=== PATIENT | male | born 1935 | race Caucasian/White ===

== ENCOUNTER 2017-12-09 12:15 | Inpatient (IN) | payer MEDICARE ==
[~2017-12-09] VITALS: Ht 182.9 cm; Wt 90.7 kg
[2017-12-09] MEDS ORDERED: Sodium Chloride 500ML 500 ML IV ONE (12:30)
[2017-12-09] MEDS ORDERED: MIRTAZAPINE15 M3 ORAL (12:43)
[2017-12-09] MEDS ORDERED: ELIQUIS5 MG PO (12:43)
[2017-12-09] MEDS ORDERED: ATORVASTATIN CA40 MG ORAL (12:43)
[2017-12-09] MEDS ORDERED: ACID CONTROL150 MG ORAL (12:43)
[2017-12-09] MEDS ORDERED: FOLIC ACID1 MG ORAL (12:43)
[2017-12-09] MEDS ORDERED: CITALOPRAM HBR10 M1 ORAL (12:43)
[2017-12-09 13:08] VITALS: BP 109/72
[2017-12-09 13:33] LABS: BASOPHILS % (AUTO) 0.9 % (0.0-2.0); EOSINOPHILS % (AUTO) 2.3 % (0.0-3.0); HEMATOCRIT 40.5 % (42.0-52.0); HEMOGLOBIN 13.4 G/DL (14.2-18.0); LYMPHOCYTES % (AUTO) 17.6 % (20.0-45.0); MEAN CORPUSCULAR VOLUME 90 FL (80-99); MONOCYTES % (AUTO) 7.7 % (1.0-10.0); NEUTROPHILS % (AUTO) 71.5 % (45.0-75.0); PLATELET COUNT 179 K/UL (150-450); RED CELL DISTRIBUTION WIDTH 13.3 % (11.6-14.8); WHITE BLOOD COUNT 5.6 K/UL (4.8-10.8)
[2017-12-09 13:48] LABS: ANION GAP 8 mmol/L (5-15); BLOOD UREA NITROGEN 20 mg/dL (7-18); CARBON DIOXIDE 24 MMOL/L (21-32); CHLORIDE 112 MMOL/L (98-107); CREATININE 1.8 MG/DL (0.55-1.30); POTASSIUM 4.2 MMOL/L (3.5-5.1); SODIUM 143 MMOL/L (136-145)
--- NOTE | 2017-12-09 13:58 | Diagnostic Imaging Report ---
Indication: Chest pain Technique: One view of the chest Comparison: none Findings: Heart is enlarged. The lungs and pleural spaces are clear. The aorta is tortuous and ectatic. The top of what is probably an aortic stent graft is seen in the midabdomen Impression: Cardiomegaly. No definite acute process
[2017-12-09 14:02] LABS: ALANINE AMINOTRANSFERASE 17 U/L (12-78); ALBUMIN 2.7 G/DL (3.4-5.0); ALBUMIN/GLOBULIN RATIO 0.7 (1.0-2.7); ALKALINE PHOSPHATASE 109 U/L (46-116); ASPARTATE AMINO TRANSFERASE 25 U/L (15-37); BILIRUBIN,TOTAL 0.4 MG/DL (0.2-1.0); CREATINE KINASE 100 U/L (26-308)
[2017-12-09 14:30] VITALS: BP 107/58
[2017-12-09 15:33] VITALS: BP 103/65
[2017-12-09] MEDS ORDERED: Milk of Magnesia 30ml Ud ORAL PRN (15:45)
[2017-12-09 15:46] LABS: APPEARANCE,URINE SLIGHTLY CLOUDY; BILIRUBIN, URINE NEGATIVE (NEGATIVE); COLOR,URINE PALE YELLOW; GLUCOSE, URINE (UA) NEGATIVE (NEGATIVE); KETONES,URINE NEGATIVE (NEGATIVE); LEUKOCYTE ESTERASE ,URINE NEGATIVE (NEGATIVE); NITRITE,URINE NEGATIVE (NEGATIVE); PH,URINE 5 (4.5-8.0); PROTEIN,URINE NEGATIVE (NEGATIVE); UROBILINOGEN,URINE NORMAL MG/DL (0.0-1.0)
[2017-12-09] MEDS: Citalopram Hydrobromide 10mg Tab ORAL SCH (17:37)
--- NOTE | 2017-12-09 19:11 | History & Physical ---
History and Physical History & Physicial H&P dictated [id number] CARMEN MARSHALL M.D. Dec 09, 2017 19:11
[2017-12-09 20:00] VITALS: BP 90/53
[2017-12-09] MEDS: Atorvastatin 20mg tab ORAL SCH (20:57)
[2017-12-10] VITALS: BP 98/67
--- NOTE | 2017-12-10 00:30 | History and Physical Report ---
DATE OF ADMISSION: 12/09/2017 REASON FOR ADMISSION: Hypotension and near syncope. HISTORY OF PRESENT ILLNESS: This is a 82-year-old male who is followed at the [facility] with past medical history significant for atrial fibrillation on Eliquis, gastroesophageal reflux disease, major depressive disorder, dermatitis of the face and arms as well as torso who was brought in by ambulance from assisted living facility [facility] for hypotension. The patient had episode of near syncope and dizziness. He is a poor historian; however denies any chest pain, shortness of breath, nausea or vomiting. He does have a scaly skin lesion with oozing over his face as well his arms and has recently seen a invoice control clerk as far as yesterday for dermatitis for which he is being treated. In regards to his low blood pressure, the patient has had workup in the emergency room which revealed elevated lactate however he did have normal white blood cell count as well as a negative urinalysis for infection and normal chest x-ray. The patient's creatinine is elevated at 1.8. He has no history of kidney disease. PAST MEDICAL HISTORY: Includes syncope, history of falling, difficulty walking, muscle weakness, atrial fibrillation, sick sinus syndrome, hypothyroidism, dermatitis, major depressive disorder with psychotic features, atherosclerotic heart disease, eczema/dermatitis of face. PAST SURGICAL HISTORY: None. FAMILY HISTORY: Unknown. SOCIAL HISTORY: The patient lives at assisted living facility. He denies smoking or drinking alcohol. ALLERGIES: None. MEDICATIONS: Reviewed in [facility]. PHYSICAL EXAMINATION: VITAL SIGNS: Temperature is , pulse 90, respiratory rate 18, blood pressure 107/58, O2 saturation 99% on room air. GENERAL: No acute distress. The patient is awake, alert, and oriented x3. HEENT: Normocephalic and atraumatic. NECK: Supple. No JVD. LUNGS: Clear to auscultation bilaterally. CARDIOVASCULAR: Regular rate but irregular rhythm. ABDOMEN: Soft, nontender, and nondistended. EXTREMITIES: No clubbing, cyanosis, or edema. NEUROLOGIC: The patient able to move all extremities and is awake. SKIN: The patient has a scaly round lesions with oozing diffusely over his face along with crusting as well as his arms and torso. LABORATORY AND DIAGNOSTIC DATA: BMP sodium 143, potassium 4.2, chloride 112, CO2 24, BUN 20, creatinine 1.8, glucose 124. Albumin is 2.7. CBC, white count of 5.6, hemoglobin 13.4, and platelet count 179. UA has 5+ occult alcohol blood, but 0 to 2 RBCs, no WBCs. Chest x-ray shows no acute process or infiltrate. ASSESSMENT: 1. Hypotension without any sign of infection. Differential diagnosis includes dehydration/hypovolemia versus secondary to infectious process over skin lesions. 2. Near syncope. 3. History of falls. 4. Atrial fibrillation-rate controlled. 5. Hypothyroidism. 6. Dermatitis diffuse over the left face as well arms and torso. 7. Major depressive disorder. 8. Acute kidney injury possibly secondary to dehydration. PLANT: 1. Admit to telemetry. 2. Renal consult with Dr. Caleb Merchant. 3. TTE. 4. Cardiac consult for atrial fibrillation with Dr. Pennington. 5. Check a TSH and free T4 as the patient is not on Synthroid and has a history of hypothyroidism. 6. Half NS at 75 mL an hour and monitor creatinine. 7. Continue Eliquis 5 mg p.o. b.i.d. 8. Physical therapy evaluation. Wilian Broderick MD DR: Susu JOB#: [id number] CC:
[2017-12-10 04:00] VITALS: BP 100/66
[2017-12-10 08:00] VITALS: BP 118/88
[2017-12-10] MEDS: Citalopram Hydrobromide 10mg Tab ORAL SCH (08:08)
[2017-12-10] MEDS: Eliquis 2.5mg tablet ORAL SCH ×2 (08:08→17:25)
[2017-12-10 09:34] LABS: BASOPHILS % (AUTO) 1.8 % (0.0-2.0); EOSINOPHILS % (AUTO) 4.7 % (0.0-3.0); HEMATOCRIT 38.1 % (42.0-52.0); HEMOGLOBIN 12.7 G/DL (14.2-18.0); LYMPHOCYTES % (AUTO) 17.5 % (20.0-45.0); MEAN CORPUSCULAR VOLUME 90 FL (80-99); MONOCYTES % (AUTO) 10.4 % (1.0-10.0); NEUTROPHILS % (AUTO) 65.6 % (45.0-75.0); PLATELET COUNT 170 K/UL (150-450); RED BLOOD COUNT 4.23 M/UL (4.70-6.10); RED CELL DISTRIBUTION WIDTH 13.2 % (11.6-14.8); WHITE BLOOD COUNT 4.9 K/UL (4.8-10.8)
[2017-12-10 10:08] LABS: ANION GAP 8 mmol/L (5-15); BLOOD UREA NITROGEN 18 mg/dL (7-18); CALCIUM 8.8 MG/DL (8.5-10.1); CARBON DIOXIDE 25 MMOL/L (21-32); CHLORIDE 112 MMOL/L (98-107); CREATININE 1.3 MG/DL (0.55-1.30); POTASSIUM 3.9 MMOL/L (3.5-5.1); SODIUM 144 MMOL/L (136-145)
[2017-12-10 11:58] VITALS: BP 119/65
--- NOTE | 2017-12-10 14:28 | History & Physical ---
History and Physical History & Physicial HP dictated # [id number] SEAN EVANS Dec 10, 2017 14:28
[2017-12-10] MEDS: Vancomycin 1.5gm/D5W 250ml 250 ML IVPB SCH (15:06)
--- NOTE | 2017-12-10 15:46 | Cardiology Progress Note ---
Subjective Subjective [id number] Objective Last 24 Hour Vital Signs Date Time Temp Pulse Resp B/P (MAP) Pulse Ox O2 Delivery O2 Flow Rate FiO2 12/10/17 12:00 90 12/10/17 11:58 97.0 94 20 119/65 95 12/10/17 08:00 92 12/10/17 08:00 97.2 88 20 118/88 95 12/10/17 04:00 97.4 69 19 100/66 95 12/10/17 04:00 87 12/10/17 00:00 97.4 69 20 98/67 94 12/10/17 00:00 83 12/09/17 20:00 97.0 86 20 90/53 100 12/09/17 17:00 89 12/09/17 16:19 87 15 107/70 99 Room Air Intake and Output 12/09/17 12/10/17 19:00 07:00 Intake Total 260 ml 450 ml Output Total 600 ml 400 ml Balance -340 ml 50 ml Intake Oral 260 ml IV Total 0 ml 450 ml Output Urine Total 600 ml 400 ml Laboratory Tests Test 12/09/17 17:50 12/10/17 08:00 Urine Random Sodium 94 MEQ/L (20-110) Urine Creatinine 175.9 MG/DL (30.0-125.0) H White Blood Count 4.9 K/UL (4.8-10.8) Red Blood Count 4.23 M/UL (4.70-6.10) L Hemoglobin 12.7 G/DL (14.2-18.0) L Hematocrit 38.1 % (42.0-52.0) L Mean Corpuscular Volume 90 FL (80-99) Mean Corpuscular Hemoglobin 30.1 PG (27.0-31.0) Mean Corpuscular Hemoglobin Concent 33.4 G/DL (32.0-36.0) Red Cell Distribution Width 13.2 % (11.6-14.8) Platelet Count 170 K/UL (150-450) Mean Platelet Volume 9.4 FL (6.5-10.1) Neutrophils (%) (Auto) 65.6 % (45.0-75.0) Lymphocytes (%) (Auto) 17.5 % (20.0-45.0) L Monocytes (%) (Auto) 10.4 % (1.0-10.0) H Eosinophils (%) (Auto) 4.7 % (0.0-3.0) H Basophils (%) (Auto) 1.8 % (0.0-2.0) Sodium Level 144 MMOL/L (136-145) Potassium Level 3.9 MMOL/L (3.5-5.1) Chloride Level 112 MMOL/L (98-107) H Carbon Dioxide Level 25 MMOL/L (21-32) Anion Gap 8 mmol/L (5-15) Blood Urea Nitrogen 18 mg/dL (7-18) Creatinine 1.3 MG/DL (0.55-1.30) Estimat Glomerular Filtration Rate mL/min (>60) Glucose Level 99 MG/DL (74-106) Calcium Level 8.8 MG/DL (8.5-10.1) Magnesium Level 1.8 MG/DL (1.8-2.4) Thyroid Stimulating Hormone (TSH) 2.823 uiU/mL (0.358-3.740) Microbiology Date/Time Source Procedure Growth Status 12/09/17 13:00 Blood Blood Culture - Preliminary Resulted 12/09/17 12:45 Blood Blood Culture - Preliminary Resulted MILE PANCHAL Dec 10, 2017 15:46
[2017-12-10 16:00] VITALS: BP 105/66
[2017-12-10] MEDS ORDERED: 1/2 NS 1000ml IV ONE (16:36)
[2017-12-10 20:00] VITALS: BP 107/66
[2017-12-10] MEDS: Atorvastatin 20mg tab ORAL SCH (21:01)
--- NOTE | 2017-12-10 22:45 | Consultation ---
DATE OF CONSULTATION: 12/10/2017 NEPHROLOGY CONSULTATION CONSULTING PHYSICIAN: Caleb Merchant M.D. REFERRING PHYSICIAN: Wilian Broderick M.D. REASON FOR CONSULTATION: Acute renal failure. HISTORY OF PRESENT ILLNESS: The patient is an 82-year-old white male who was admitted with hypotension and near syncope. The patient does not recall much details but he said he was on the street. He became dizzy and he was brought into the emergency room and was found to have also elevated creatinine at 1.8. The patient denies any previous history of kidney problems. Denies history of nausea, vomiting, or diarrhea. He denies being on any diuretics. PAST MEDICAL HISTORY: He has some scaly lesions over face and he has also some other lesions over other parts of body especially the neck. He does not know the diagnosis but usually goes to [place]. He has history of atrial fibrillation, sick sinus syndrome, hypothyroidism, major depressive disorder, psychotic features, coronary artery disease, history of eczema. MEDICATIONS: Reviewed and reconciled in the EMR. SOCIAL HISTORY: The patient lives in an assisted living facility. No history of smoking or alcohol abuse. ALLERGIES: No known drug allergies. REVIEW OF SYSTEMS: Noncontributory except what was mentioned. PHYSICAL EXAMINATION: GENERAL: The patient is elderly male, in no acute distress. VITAL SIGNS: Blood pressure 119/65, pulse 94, respiratory rate 20, temperature 97. HEENT: [place] conjunctivae. Anicteric sclerae. The patient has lesions with scaling and oozing over most of his face. NECK: Supple. LUNGS: Clear to auscultation. HEART: S1 and S2 without murmurs or rubs. ABDOMEN: Soft and nontender. EXTREMITIES: No cyanosis or edema. LABORATORY FINDINGS: Chemistry panel as of yesterday showed a serum sodium of 143, potassium 4.2, chloride 112, CO2 21, BUN 20, creatinine 1.8, and albumin is 2.7. CBC shows a WBC of 5.6, hematocrit is 40.7, hemoglobin is 13.4,. UA was unremarkable. Today the serum creatinine is down to 1.3. ASSESSMENT: This is an 82-year-old male who was admitted with diagnosis of presyncope as a result of low blood pressures. He had also acute renal failure with creatinine up to 1.8. He received intravenous normal saline currently at the range of 75 mL an hour. Blood pressure has been stable. His creatinine has come down so diagnosis likely prerenal azotemia. It is not clear why he has developed that. He says that he has been drinking enough fluids and there was no also gastrointestinal losses and he was also not on any diuretics. Low blood pressure could be from sepsis but then again there was no source was found. His UA is unremarkable. PLAN: I would continue with IV fluid. Chemistry panel will be followed closely. The patient is on Eliquis for his history of atrial fibrillation, and also IV vancomycin, I am assuming for cellulitis. Thank you, very much Dr. Broderick, for this consultation. Caleb Merchant M.D. DR: Damaris JOB#: [id number] CC: ERASMO
--- NOTE | 2017-12-10 23:45 | Consultation ---
DATE OF CONSULTATION: 12/10/2017 CARDIOLOGY CONSULTATION CONSULTING PHYSICIAN: Dilia Corral M.D. PATIENT IDENTIFYING DATA: This is an 82-year-old white male. REASON FOR ADMISSION: Syncopal episode. HISTORY OF PRESENT ILLNESS: History taken from the patient and reviewing the chart, the patient is very slow and not very good historian. He apparently ended up on the ground while he was working outside and he is not sure about circumstances if he feel dizzy. He found himself arouse when he was taken by paramedics. It sounded like it is not the first time, but the patient is not able to give a detailed history. He is oriented, however and he knows where he is. PAST MEDICAL HISTORY: Significant for atrial fibrillation. He is anticoagulated. His other medical problems include dermatitis. He has very impressive skin covered with a crust what looks like brownish-yellowish crust on his face and on his neck. He also had a history of hypothyroidism, depression, and psychiatric problems. MEDICATIONS: Reviewed and apparently at home, he is taking apixaban, atorvastatin, folic acid, mirtazapine, and Zantac. ALLERGIES: Not documented. HABITS: He denies smoking or alcohol abuse. REVIEW OF SYSTEMS: He denies chest pain, palpitations, shortness of breath. I am not sure how reliable his review of system is. PHYSICAL EXAMINATION: GENERAL: Revealed elderly man, lying in bed. VITAL SIGNS: Blood pressure 110/90, heart rate is 70, oxygen saturation is normal, and he is afebrile. HEENT: PERRLA. EOMI. However, skin covered with a very dense yellow brownish crust, which is not painful and not draining. NECK: Supple. Neck veins are not distended. He has no carotid bruit. He has normal carotid upstroke. LUNGS: Clear to auscultation bilaterally. HEART: Irregular. PMI is in the sixth intercostal space in midclavicular line. He has very slight accented A2. ABDOMEN: Soft. There is no scar. Bowel sounds are present. No guarding. No hepatomegaly. EXTREMITIES: Lower extremities, moderate edema. Distal pulses palpable. No erythema. LABORATORY AND DIAGNOSTIC DATA: EKG, right bundle-branch block, atrial fibrillation. Telemetry strips ventricular tachycardia, one 6 beats and another one 10 beats. His laboratory data all reviewed. Troponin was negative. His hemoglobin was down to 12.7. His creatinine 1.3, and TSH is normal at 2.8. Chest x-ray, unremarkable. IMPRESSION AND RECOMMENDATIONS: 1. Syncopal episode. 2. Atrial fibrillation. 3. Nonsustained ventricular tachycardia. PLAN: Echocardiogram and court monitor. Thank you very much for your consultation. Dilia Corral M.D. DR: Raji JOB#: [id number] CC:
[2017-12-11] VITALS: BP 105/64
[2017-12-11 04:00] VITALS: BP 129/94
[2017-12-11 08:00] VITALS: BP 127/75
--- NOTE | 2017-12-11 08:05 | Emergency Room Report ---
History of Present Illness General Chief Complaint: General Complaint Source: Patient, Medical Record Present Illness HPI Patient was at his regular facility when he was reported to have a hypotensive episode Patient appeared essentially near syncopal Patient himself is a poor historian Cannot provide specific history However at this time denies any headache denies any chest pain He was not sure why he was brought to the hospital Patient's son-in-law is here initially requesting to be let go [facility] He reports that they were just a few days ago Prior to that they were at [facility] Patient has a skin condition and is being followed by dermatology Allergies: Coded Allergies: No Known Allergies (Unverified , 12/09/17) Patient History Past Medical History: see triage record Pertinent Family History: none Reviewed Nursing Documentation: PMH: Agreed, PSxH: Agreed Nursing Documentation-PMH Past Medical History: No History, Except For Hx Cancer: No Hx Gastrointestinal Problems: No Hx Neurological Problems: No Review of Systems All Other Systems: limited - Other than the ones mentioned in the history of present illness all others are reviewed however they do stay limited due to the patient's mental status Physical Exam Vital Signs Date Time Temp Pulse Resp B/P (MAP) Pulse Ox O2 Delivery O2 Flow Rate FiO2 12/09/17 12:06 98.6 102 18 100/58 95 Room Air Sp02 EP Interpretation: reviewed, normal General Appearance: no apparent distress Head: normocephalic, atraumatic Eyes: bilateral eye PERRL, bilateral eye EOMI ENT: hearing grossly normal, normal pharynx, TMs + canals normal, uvula midline Neck: full range of motion, supple, no meningismus, no bony tend Respiratory: lungs clear, normal breath sounds, no rhonchi, no respiratory distress, no retraction, no accessory muscle use Cardiovascular #1: normal peripheral pulses, regular rate, rhythm, no edema, no gallop, no JVD, no murmur Gastrointestinal: normal bowel sounds, non tender, soft, no mass, no organomegaly, non-distended, no guarding, no hernia, no pulsatile mass, no rebound Genitourinary: no CVA tenderness Musculoskeletal: normal inspection Neurologic: responsive, quarry plug and feather driller III-XII nml as tested, motor strength/tone normal, sensory intact Psychiatric: mood/affect normal Skin: other - Patient has a diffuse dermatitis, including areas of impetigo appearing honey crusting regions on the facial area and neck Lymphatic: normal inspection, no adenopathy Medical Decision Making Diagnostic Impression: Primary Impression: Sepsis Additional Impression: hypotension ER Course Patient is a fairly complex patient with multiple differential to consideration including but not limited to cardiac cardiopulmonary and vascular emergencies Patient's blood pressure here is more appropriate Patient is afebrile Blood work is at baseline levels given the patient's episode and presentation however he does require further cardiac evaluation And further inpatient care Please note that the son-in-law initially requested leaving AGAINST MEDICAL ADVICE Patient's daughter who is legal guardian however is reporting that patient should be admitted and does not want him to leave AGAINST MEDICAL ADVICE Labs Test 12/09/17 13:00 12/09/17 15:10 12/09/17 17:50 12/10/17 08:00 White Blood Count 5.6 K/UL (4.8-10.8) 4.9 K/UL (4.8-10.8) Red Blood Count 4.50 M/UL (4.70-6.10) 4.23 M/UL (4.70-6.10) Hemoglobin 13.4 G/DL (14.2-18.0) 12.7 G/DL (14.2-18.0) Hematocrit 40.5 % (42.0-52.0) 38.1 % (42.0-52.0) Mean Corpuscular Volume 90 FL (80-99) 90 FL (80-99) Mean Corpuscular Hemoglobin 29.9 PG (27.0-31.0) 30.1 PG (27.0-31.0) Mean Corpuscular Hemoglobin Concent 33.2 G/DL (32.0-36.0) 33.4 G/DL (32.0-36.0) Red Cell Distribution Width 13.3 % (11.6-14.8) 13.2 % (11.6-14.8) Platelet Count 179 K/UL (150-450) 170 K/UL (150-450) Mean Platelet Volume 9.1 FL (6.5-10.1) 9.4 FL (6.5-10.1) Neutrophils (%) (Auto) 71.5 % (45.0-75.0) 65.6 % (45.0-75.0) Lymphocytes (%) (Auto) 17.6 % (20.0-45.0) 17.5 % (20.0-45.0) Monocytes (%) (Auto) 7.7 % (1.0-10.0) 10.4 % (1.0-10.0) Eosinophils (%) (Auto) 2.3 % (0.0-3.0) 4.7 % (0.0-3.0) Basophils (%) (Auto) 0.9 % (0.0-2.0) 1.8 % (0.0-2.0) Sodium Level 143 MMOL/L (136-145) 144 MMOL/L (136-145) Potassium Level 4.2 MMOL/L (3.5-5.1) 3.9 MMOL/L (3.5-5.1) Chloride Level 112 MMOL/L (98-107) 112 MMOL/L (98-107) Carbon Dioxide Level 24 MMOL/L (21-32) 25 MMOL/L (21-32) Anion Gap 8 mmol/L (5-15) 8 mmol/L (5-15) Blood Urea Nitrogen 20 mg/dL (7-18) 18 mg/dL (7-18) Creatinine 1.8 MG/DL (0.55-1.30) 1.3 MG/DL (0.55-1.30) Estimat Glomerular Filtration Rate mL/min (>60) mL/min (>60) Glucose Level 124 MG/DL (74-106) 99 MG/DL (74-106) Lactic Acid Level 3.10 mmol/L (0.66-2.22) 1.90 mmol/L (0.66-2.22) Calcium Level 9.0 MG/DL (8.5-10.1) 8.8 MG/DL (8.5-10.1) Total Bilirubin 0.4 MG/DL (0.2-1.0) Aspartate Amino Transf (AST/SGOT) 25 U/L (15-37) Alanine Aminotransferase (ALT/SGPT) 17 U/L (12-78) Alkaline Phosphatase 109 U/L (46-116) Total Creatine Kinase 100 U/L (26-308) Creatine Kinase MB 2.0 NG/ML (0.0-3.6) Creatine Kinase MB Relative Index 2.0 Troponin I 0.006 ng/mL (0.000-0.056) Pro-B-Type Natriuretic Peptide 565 pg/mL (0-125) Total Protein 6.6 G/DL (6.4-8.2) Albumin 2.7 G/DL (3.4-5.0) Globulin 3.9 g/dL Albumin/Globulin Ratio 0.7 (1.0-2.7) Lipase 213 U/L (73-393) Free Thyroxine 0.95 NG/DL (0.76-1.46) Urine Color Pale yellow Urine Appearance Slightly cloudy Urine pH 5 (4.5-8.0) Urine Specific [place] 1.010 (1.005-1.035) Urine Protein Negative (NEGATIVE) Urine Glucose (UA) Negative (NEGATIVE) Urine Ketones Negative (NEGATIVE) Urine Occult Blood 5+ (NEGATIVE) Urine Nitrite Negative (NEGATIVE) Urine Bilirubin Negative (NEGATIVE) Urine Urobilinogen Normal MG/DL (0.0-1.0) Urine Leukocyte Esterase Negative (NEGATIVE) Urine RBC 0-2 /HPF (0 - 0) Urine WBC 0-2 /HPF (0 - 0) Urine Squamous Epithelial Cells None /LPF (NONE/OCC) Urine Amorphous Sediment Moderate /LPF (NONE) Urine Bacteria Occasional /HPF (NONE) Urine Random Sodium 94 MEQ/L (20-110) Urine Creatinine 175.9 MG/DL (30.0-125.0) Magnesium Level 1.8 MG/DL (1.8-2.4) Thyroid Stimulating Hormone (TSH) 2.823 uiU/mL (0.358-3.740) EKG Diagnostic Results Rate: normal Rhythm: NSR ST Segments: no acute changes Rhythm Strip Diag. Results EP Interpretation: yes Rate: 78 Rhythm: NSR, no PVC's, no ectopy Chest X-Ray Diagnostic Results Chest X-Ray Diagnostic Results : Chest X-Ray Ordered: Yes # of Views/Limited/Complete: 1 View Indication: Chest Pain EP Interpretation: Yes Interpretation: no consolidation, no effusion, no pneumothorax, other - Cardiomegaly Impression: No acute disease Electronically Signed by: Nancy Pickens DO Last Vital Signs Date Time Temp Pulse Resp B/P (MAP) Pulse Ox O2 Delivery O2 Flow Rate FiO2 12/11/17 04:00 73 12/11/17 04:00 97.0 20 129/94 94 12/09/17 16:19 Room Air Status: improved Disposition: ADMITTED INPATIENT Condition: Serious Referrals: NON PHYSICIAN (PCP) NANCY PICKENS D.O. Dec 11, 2017 08:05
[2017-12-11] MEDS: Citalopram Hydrobromide 10mg Tab ORAL SCH (09:23)
[2017-12-11] MEDS: Eliquis 2.5mg tablet ORAL SCH ×2 (09:24→18:23)
[2017-12-11 12:00] VITALS: BP 132/66
--- NOTE | 2017-12-11 12:06 | General Progress Note ---
Assessment/Plan Problem List: (1) Syncope and collapse ICD Codes: R55 - Syncope and collapse SNOMED: 292135423 (2) Sepsis ICD Codes: A41.9 - Sepsis, unspecified organism SNOMED: 42102051 (3) Staphylococcus aureus bacteremia ICD Codes: R78.81 - Bacteremia SNOMED: 857042683 (4) ARF (acute renal failure) ICD Codes: N17.9 - Acute kidney failure, unspecified SNOMED: 95817269 Assessment/Plan IV vanco ID consult follow BMP Discussed with Dr Broderick Subjective Allergies: Coded Allergies: No Known Allergies (Unverified , 12/09/17) Subjective In NAD Objective Last 24 Hour Vital Signs Date Time Temp Pulse Resp B/P (MAP) Pulse Ox O2 Delivery O2 Flow Rate FiO2 12/11/17 08:00 97.5 102 20 127/75 100 12/11/17 04:00 73 12/11/17 04:00 97.0 94 20 129/94 94 12/11/17 00:00 82 12/11/17 00:00 97.0 79 20 105/64 99 12/10/17 20:00 97.0 81 20 107/66 100 12/10/17 20:00 83 12/10/17 16:00 97.5 93 20 105/66 96 12/10/17 16:00 83 Intake and Output 12/10/17 12/11/17 19:00 07:00 Intake Total 360 ml 825 ml Output Total 500 ml 1000 ml Balance -140 ml -175 ml Intake Oral 360 ml IV Total 0 ml 825 ml Output Urine Total 500 ml 1000 ml Height (Feet): 6 Weight (Pounds): 200 Cardiovascular: normal rate Respiratory/Chest: lungs clear Edema: no edema noted SEAN Knight Dec 11, 2017 12:06
[2017-12-11] MEDS: Vancomycin 1.5gm/D5W 250ml 250 ML IVPB SCH (14:42)
--- NOTE | 2017-12-11 14:54 | Cardiology Report ---
APPROVED REPORT EXAM: Two-dimensional and M-mode echocardiogram with Doppler and color Doppler. INDICATION Atrial Fibrillation M-Mode DIMENSIONS IVSd1.4 (0.7-1.1cm)Left Atrium (MM)4.4 (1.6-4.0cm) LVDd6.5 (3.5-5.6cm)Aortic Root4.5 (2.0-3.7cm) PWd1.1 (0.7-1.1cm)Aortic Cusp Exc.1.9 (1.5-2.0cm) IVSs2.5 cm LVDs5.0 (2.5-4.0cm) Normal left ventricular chamber size, systolic function and wall motion. Left ventricular ejection fraction estimated to be 60-65 %. No evidence of pericardial effusion Mild left ventricular hypertrophy by 2-D. Mild Left atrial enlargement. Right ventricular chamber sizes is within normal limits. Focal aortic valve sclerosis with adequate cusp excursion. Heavy Thickened mitral valve leaflets with normal excursion. Heavy Mitral annulus and aortic root calcification. Pulmonic valve not well visualized. Normal tricuspid valve structure. IVC at 1.3 cm with physiologic collapse . A color flow and spectral Doppler study was performed and revealed: No aortic regurgitation. Mild to moderate mitral regurgitation. Diastolic function can not determine due to Atrial fibrillation. Mild tricuspid regurgitation. Tricuspid systolic velocities suggests peak right ventricular systolic pressure of 30 mmHg, No Pulmonic regurgitation present.
[2017-12-11 16:00] VITALS: BP 121/74
[2017-12-11] MEDS ORDERED: Tubing IV Secondary IV ONE (16:36)
--- NOTE | 2017-12-11 17:14 | Cardiology Progress Note ---
Assessment/Plan Assessment/Plan echo revealed normal LV function \non sustained vtach unlikely to cause syncope Subjective Subjective patient is doing the same, slow to give hsitory and does not have any compalints Objective Last 24 Hour Vital Signs Date Time Temp Pulse Resp B/P (MAP) Pulse Ox O2 Delivery O2 Flow Rate FiO2 12/11/17 16:00 97.0 81 20 121/74 97 12/11/17 12:00 97.2 120 18 132/66 95 12/11/17 12:00 117 12/11/17 08:00 91 12/11/17 08:00 97.5 102 20 127/75 100 12/11/17 04:00 73 12/11/17 04:00 97.0 94 20 129/94 94 12/11/17 00:00 82 12/11/17 00:00 97.0 79 20 105/64 99 12/10/17 20:00 97.0 81 20 107/66 100 12/10/17 20:00 82 General Appearance: WD/WN EENT: other - severre rash on his face and legs Neck: non-tender Rhythm: NSR, VT - non sustained v tach Cardiovascular: other - episodes of non sustained vatch Respiratory/Chest: lungs clear Abdomen: non tender Extremities: normal range of motion Intake and Output 12/10/17 12/11/17 19:00 07:00 Intake Total 360 ml 825 ml Output Total 500 ml 1000 ml Balance -140 ml -175 ml Intake Oral 360 ml IV Total 0 ml 825 ml Output Urine Total 500 ml 1000 ml Microbiology Date/Time Source Procedure Growth Status 12/09/17 13:00 Blood Blood Culture - Preliminary Staphylococcus Aureus Resulted 12/09/17 12:45 Blood Blood Culture - Preliminary Staphylococcus Aureus Resulted 12/10/17 10:00 Wound Gram Stain - Final Resulted 12/10/17 10:00 Wound Culture - Preliminary Staphylococcus Aureus Resulted MILE PANCHAL Dec 11, 2017 17:14
[2017-12-11 20:00] VITALS: BP 122/78
[2017-12-11] MEDS: Atorvastatin 20mg tab ORAL SCH (21:20)
[2017-12-12] VITALS: BP 113/76
[2017-12-12 04:00] VITALS: BP 116/64
[2017-12-12 08:00] VITALS: BP 126/87
[2017-12-12] MEDS: Citalopram Hydrobromide 10mg Tab ORAL SCH (08:42)
[2017-12-12] MEDS: Eliquis 2.5mg tablet ORAL SCH ×2 (08:42→17:40)
--- NOTE | 2017-12-12 09:49 | Diagnostic Imaging Report ---
Indication:Elevated Bun and Creatinine. Technique: Grayscale and duplex Doppler imaging of the kidneys performed. Comparison: None Findings: The size, contour, and echogenicity of both kidneys are within normal limits. There is a 2.5 cm left renal cyst demonstrated. The right kidney is about 9 cm. Left kidney 11.3 cm. There is no hydronephrosis. The IVC and urinary bladder are unremarkable. IMPRESSION: Borderline small right kidney Left renal cyst
[2017-12-12 11:47] LABS: BASOPHILS % (AUTO) 1.1 % (0.0-2.0); EOSINOPHILS % (AUTO) 4.3 % (0.0-3.0); HEMATOCRIT 41.4 % (42.0-52.0); HEMOGLOBIN 13.5 G/DL (14.2-18.0); LYMPHOCYTES % (AUTO) 29.4 % (20.0-45.0); MEAN CORPUSCULAR VOLUME 91 FL (80-99); MONOCYTES % (AUTO) 8.6 % (1.0-10.0); NEUTROPHILS % (AUTO) 56.6 % (45.0-75.0); PLATELET COUNT 207 K/UL (150-450); RED BLOOD COUNT 4.55 M/UL (4.70-6.10); RED CELL DISTRIBUTION WIDTH 13.3 % (11.6-14.8); WHITE BLOOD COUNT 4.8 K/UL (4.8-10.8)
[2017-12-12 12:00] VITALS: BP 103/64
[2017-12-12 12:04] LABS: ANION GAP 9 mmol/L (5-15); BLOOD UREA NITROGEN 15 mg/dL (7-18); CALCIUM 8.8 MG/DL (8.5-10.1); CARBON DIOXIDE 24 MMOL/L (21-32); CHLORIDE 111 MMOL/L (98-107); CREATININE 1.2 MG/DL (0.55-1.30); POTASSIUM 4.1 MMOL/L (3.5-5.1); SODIUM 144 MMOL/L (136-145)
--- NOTE | 2017-12-12 14:21 | Nephrology Progress Note ---
Assessment/Plan Problem List: (1) Syncope and collapse (2) Sepsis (3) Staphylococcus aureus bacteremia (4) ARF (acute renal failure) Assessment ARF better Plan abxs follow labs Discussed with Dr Broderick Subjective Subjective In NAD Objective Objective Last 24 Hour Vital Signs Date Time Temp Pulse Resp B/P (MAP) Pulse Ox O2 Delivery O2 Flow Rate FiO2 12/12/17 12:00 98.0 90 19 103/64 99 12/12/17 12:00 88 12/12/17 08:00 98.0 93 20 126/87 100 12/12/17 08:00 78 12/12/17 04:00 90 12/12/17 04:00 97.0 76 22 116/64 95 12/12/17 00:00 97.3 87 20 113/76 99 12/12/17 00:00 96 12/11/17 20:00 97.3 84 21 122/78 99 12/11/17 20:00 73 12/11/17 16:00 87 12/11/17 16:00 97.0 81 20 121/74 97 Intake and Output 12/11/17 12/12/17 19:00 07:00 Intake Total 810 ml Output Total 650 ml Balance 160 ml Intake Oral 360 ml IV Total 450 ml Output Urine Total 650 ml # Voids 1 Laboratory Tests 12/12/17 11:20: White Blood Count 4.8, Red Blood Count 4.55L, Hemoglobin 13.5L, Hematocrit 41.4L , Mean Corpuscular Volume 91, Mean Corpuscular Hemoglobin 29.6, Mean Corpuscular Hemoglobin Concent 32.6, Red Cell Distribution Width 13.3, Platelet Count 207, Mean Platelet Volume 9.5, Neutrophils (%) (Auto) 56.6, Lymphocytes (% ) (Auto) 29.4, Monocytes (%) (Auto) 8.6, Eosinophils (%) (Auto) 4.3H, Basophils (%) (Auto) 1.1, Sodium Level 144, Potassium Level 4.1, Chloride Level 111H, Carbon Dioxide Level 24, Anion Gap 9, Blood Urea Nitrogen 15, Creatinine 1.2, Estimat Glomerular Filtration Rate , Glucose Level 109H, Calcium Level 8.8 12/12/17 12:50: Vancomycin Level Trough 10.2 Height (Feet): 6 Weight (Pounds): 200 Cardiovascular: normal rate Respiratory/Chest: lungs clear SEAN EVANS Dec 12, 2017 14:21
[2017-12-12] MEDS: Vancomycin 1.5gm/D5W 250ml 250 ML IVPB SCH (14:37)
--- NOTE | 2017-12-12 14:47 | Infectious Diseases Prog Note ---
Assessment/Plan Assessment/Plan ID consult dictated # [id number] Subjective Allergies: Coded Allergies: No Known Allergies (Unverified , 12/09/17) Objective Vital Signs Last 24 Hour Vital Signs Date Time Temp Pulse Resp B/P (MAP) Pulse Ox O2 Delivery O2 Flow Rate FiO2 12/12/17 12:00 98.0 90 19 103/64 99 12/12/17 12:00 88 12/12/17 08:00 98.0 93 20 126/87 100 12/12/17 08:00 78 12/12/17 04:00 90 12/12/17 04:00 97.0 76 22 116/64 95 12/12/17 00:00 97.3 87 20 113/76 99 12/12/17 00:00 96 12/11/17 20:00 97.3 84 21 122/78 99 12/11/17 20:00 73 12/11/17 16:00 87 12/11/17 16:00 97.0 81 20 121/74 97 Height (Feet): 6 Weight (Pounds): 200 Microbiology Date/Time Source Procedure Growth Status 12/10/17 10:00 Wound Gram Stain - Final Complete 12/10/17 10:00 Wound Culture - Final Staphylococcus Aureus Complete 12/09/17 16:00 Nasal Nares MRSA Culture - Final NO METHICILLIN RESISTANT STAPH AUREUS... Complete 12/09/17 16:00 Rectum VRE Culture - Final NO VANCOMYCIN RESISTANT ENTEROCOCCUS ... Complete Laboratory Tests Test 12/12/17 11:20 12/12/17 12:50 White Blood Count 4.8 K/UL (4.8-10.8) Red Blood Count 4.55 M/UL (4.70-6.10) L Hemoglobin 13.5 G/DL (14.2-18.0) L Hematocrit 41.4 % (42.0-52.0) L Mean Corpuscular Volume 91 FL (80-99) Mean Corpuscular Hemoglobin 29.6 PG (27.0-31.0) Mean Corpuscular Hemoglobin Concent 32.6 G/DL (32.0-36.0) Red Cell Distribution Width 13.3 % (11.6-14.8) Platelet Count 207 K/UL (150-450) Mean Platelet Volume 9.5 FL (6.5-10.1) Neutrophils (%) (Auto) 56.6 % (45.0-75.0) Lymphocytes (%) (Auto) 29.4 % (20.0-45.0) Monocytes (%) (Auto) 8.6 % (1.0-10.0) Eosinophils (%) (Auto) 4.3 % (0.0-3.0) H Basophils (%) (Auto) 1.1 % (0.0-2.0) Sodium Level 144 MMOL/L (136-145) Potassium Level 4.1 MMOL/L (3.5-5.1) Chloride Level 111 MMOL/L (98-107) H Carbon Dioxide Level 24 MMOL/L (21-32) Anion Gap 9 mmol/L (5-15) Blood Urea Nitrogen 15 mg/dL (7-18) Creatinine 1.2 MG/DL (0.55-1.30) Estimat Glomerular Filtration Rate mL/min (>60) Glucose Level 109 MG/DL (74-106) H Calcium Level 8.8 MG/DL (8.5-10.1) Vancomycin Level Trough 10.2 ug/mL (5.0-12.0) Current Medications Medications (Trade) Dose Ordered Sig/Magali Route PRN Reason Start Time Stop Time Status Last Admin Dose Admin Acetaminophen (Tylenol) 650 mg Q4H PRN ORAL Mild Pain (Pain Scale 1-3) 12/09/17 15:45 01/08/18 15:44 Apixaban (Eliquis) 5 mg BID ORAL 12/10/17 09:00 01/09/18 08:59 12/12/17 08:42 Atorvastatin Calcium (Lipitor) 40 mg BEDTIME ORAL 12/09/17 21:00 01/08/18 20:59 12/11/17 21:20 Cefazolin Sodium 1 gm/Sodium Chloride 55 ml @ 110 mls/hr Q8HR IVPB 12/12/17 22:00 12/19/17 21:59 Citalopram Hydrobromide (celeXA) 10 mg DAILY ORAL 12/09/17 16:00 01/08/18 15:59 12/12/17 08:42 Dextrose (Dextrose 50%) STAT PRN IV Hypoglycemia 12/09/17 15:45 01/08/18 15:44 Folic Acid (Folate) 1 mg DAILY ORAL 12/09/17 16:00 3/11/18 15:59 12/12/17 08:42 Magnesium Hydroxide (Mom) 30 ml HSPRN PRN ORAL Constipation 12/09/17 15:45 01/08/18 15:44 Mirtazapine (Remeron) 15 mg BEDTIME ORAL 12/09/17 21:00 01/08/18 20:59 12/11/17 21:20 Sodium Chloride 1,000 ml @ 75 mls/hr [id number] IVLG 12/09/17 16:45 01/08/18 16:44 12/11/17 21:21 BETHANIE EVANS Dec 12, 2017 14:47
[2017-12-12 16:00] VITALS: BP 122/70
[2017-12-12 20:00] VITALS: BP 100/77
--- NOTE | 2017-12-12 20:41 | Cardiology Progress Note ---
Assessment/Plan Assessment/Plan sig skin lesion bacteremia nsvt normal systolic function afib on anticoagulation syncope iv abx echo noted hr is controlled keep on anticoagulation awiat id input tele afib no vt noted orthostic vitals Subjective Cardiovascular: Denies: chest pain, lightheadedness, palpitations Respiratory: Denies: shortness of breath Gastrointestinal/Abdominal: Denies: abdominal pain Genitourinary: Denies: burning Objective Last 24 Hour Vital Signs Date Time Temp Pulse Resp B/P (MAP) Pulse Ox O2 Delivery O2 Flow Rate FiO2 12/12/17 20:00 98.0 95 20 100/77 99 12/12/17 16:00 98.0 89 20 122/70 97 12/12/17 16:00 80 12/12/17 12:00 98.0 90 19 103/64 99 12/12/17 12:00 88 12/12/17 08:00 98.0 93 20 126/87 100 12/12/17 08:00 78 12/12/17 04:00 90 12/12/17 04:00 97.0 76 22 116/64 95 12/12/17 00:00 97.3 87 20 113/76 99 12/12/17 00:00 96 General Appearance: alert Neck: supple Cardiovascular: normal rate, regular rhythm Respiratory/Chest: lungs clear, normal breath sounds Abdomen: normal bowel sounds, non tender, soft Extremities: no swelling Intake and Output 12/11/17 12/12/17 19:00 07:00 Intake Total 810 ml 75 ml Output Total 650 ml Balance 160 ml 75 ml Intake Oral 360 ml IV Total 450 ml 75 ml Output Urine Total 650 ml # Voids 1 Laboratory Tests Test 12/12/17 11:20 12/12/17 12:50 White Blood Count 4.8 K/UL (4.8-10.8) Red Blood Count 4.55 M/UL (4.70-6.10) L Hemoglobin 13.5 G/DL (14.2-18.0) L Hematocrit 41.4 % (42.0-52.0) L Mean Corpuscular Volume 91 FL (80-99) Mean Corpuscular Hemoglobin 29.6 PG (27.0-31.0) Mean Corpuscular Hemoglobin Concent 32.6 G/DL (32.0-36.0) Red Cell Distribution Width 13.3 % (11.6-14.8) Platelet Count 207 K/UL (150-450) Mean Platelet Volume 9.5 FL (6.5-10.1) Neutrophils (%) (Auto) 56.6 % (45.0-75.0) Lymphocytes (%) (Auto) 29.4 % (20.0-45.0) Monocytes (%) (Auto) 8.6 % (1.0-10.0) Eosinophils (%) (Auto) 4.3 % (0.0-3.0) H Basophils (%) (Auto) 1.1 % (0.0-2.0) Sodium Level 144 MMOL/L (136-145) Potassium Level 4.1 MMOL/L (3.5-5.1) Chloride Level 111 MMOL/L (98-107) H Carbon Dioxide Level 24 MMOL/L (21-32) Anion Gap 9 mmol/L (5-15) Blood Urea Nitrogen 15 mg/dL (7-18) Creatinine 1.2 MG/DL (0.55-1.30) Estimat Glomerular Filtration Rate mL/min (>60) Glucose Level 109 MG/DL (74-106) H Calcium Level 8.8 MG/DL (8.5-10.1) Vancomycin Level Trough 10.2 ug/mL (5.0-12.0) Microbiology Date/Time Source Procedure Growth Status 12/10/17 10:00 Wound Gram Stain - Final Complete 12/10/17 10:00 Wound Culture - Final Staphylococcus Aureus Complete THU MCCANN Dec 12, 2017 20:41
[2017-12-12] MEDS: Atorvastatin 20mg tab ORAL SCH (21:22)
--- NOTE | 2017-12-12 22:15 | Consultation ---
DATE OF CONSULTATION: 12/12/2017 INFECTIOUS DISEASE CONSULTATION CONSULTING PHYSICIAN: Jimbo Merchant M.D. PRIMARY ATTENDING PHYSICIAN: Wilian Broderick M.D. REASON FOR CONSULTATION: Staphylococcus aureus sepsis and cellulitis. HISTORY OF PRESENT ILLNESS: The patient is an 82-year-old white male, admitted on 12/09/2017 because of syncopal episode and hypotension. He was found to have acute renal failure. Blood culture at the time of admission growing methicillin-sensitive Staph aureus. The patient also has significant skin lesion especially in the face. PAST MEDICAL HISTORY: Significant for major depressive disorder, hypothyroidism, eczema, and chronic atrial fibrillation. MEDICATIONS: Getting vancomycin, apixaban, atorvastatin, Remeron, sodium chloride, Celexa, vitamin C, Tylenol, and milk of magnesia. ALLERGIES: No known drug allergy. SOCIAL HISTORY: . No history of alcohol, drug abuse, or smoking. Has a daughter. REVIEW OF SYSTEMS: Very slow to respond. Has hearing problem. Has no pain. Denies coughing. PHYSICAL EXAMINATION: VITAL SIGNS: Afebrile, temperature 98, pulse 90, and blood pressure 103/64. GENERAL APPEARANCE: No acute distress. Awake and alert. HEAD AND NECK: Extensive superficial skin lesion covering most of the face and forehead. HEART: Normal rate. Irregular. LUNGS: Clear. ABDOMEN: Soft and nontender. EXTREMITY: He has no edema. SKIN: He has erythematous skin nodules on thighs, neck, and back. NEUROLOGIC: Awake and alert. LABORATORY AND DIAGNOSTIC DATA: Sodium 144, potassium 4.1, chloride 111, bicarb 24, BUN 15, creatinine 1.2, and glucose is 109. WBC 4.9, hemoglobin 13.5, hematocrit 44.1, and platelet is 207,000. Blood culture grew x2 MSSA. Wound culture, Staph aureus. IMPRESSION: 1. Methicillin-sensitive Staphylococcus aureus sepsis likely secondary to cellulitis. We will try to rule out infective endocarditis. Ejection fraction on transthoracic echo was 60% to 65%. Has [id number] mitral regurgitation. The patient has acute renal failure that is improving. 2. Atrial fibrillation. 3. Eczema. 4. Depression. RECOMMENDATIONS: We will change antibiotic from vancomycin to Ancef. We will repeat blood culture. At the end of my exam, I thank Dr. Broderick, for involving me in the care of this patient. Jimbo Merchant M.D. DR: MAY JOB#: [id number] CC: [id number]
[2017-12-12] MEDS: ceFAZolin sod 1 GM in NS 55 ML IVPB SCH (22:27)
--- NOTE | 2017-12-12 23:39 | Internal Med Progress Note ---
Subjective Physician Name Wilina Marshall Attending Physician Wilian Marshall M.D. Current Medications Medications (Trade) Dose Ordered Sig/Magali Route PRN Reason Start Time Stop Time Status Last Admin Dose Admin Acetaminophen (Tylenol) 650 mg Q4H PRN ORAL Mild Pain (Pain Scale 1-3) 12/09/17 15:45 01/08/18 15:44 Apixaban (Eliquis) 5 mg BID ORAL 12/10/17 09:00 01/09/18 08:59 12/12/17 17:40 Atorvastatin Calcium (Lipitor) 40 mg BEDTIME ORAL 12/09/17 21:00 01/08/18 20:59 12/12/17 21:22 Cefazolin Sodium 1 gm/Sodium Chloride 55 ml @ 110 mls/hr Q8HR IVPB 12/12/17 22:00 12/19/17 21:59 12/12/17 22:27 Citalopram Hydrobromide (celeXA) 10 mg DAILY ORAL 12/09/17 16:00 01/08/18 15:59 12/12/17 08:42 Dextrose (Dextrose 50%) STAT PRN IV Hypoglycemia 12/09/17 15:45 01/08/18 15:44 Folic Acid (Folate) 1 mg DAILY ORAL 12/09/17 16:00 01/08/18 15:59 12/12/17 08:42 Magnesium Hydroxide (Mom) 30 ml HSPRN PRN ORAL Constipation 12/09/17 15:45 01/08/18 15:44 Mirtazapine (Remeron) 15 mg BEDTIME ORAL 12/09/17 21:00 01/08/18 20:59 12/12/17 21:22 Sodium Chloride 1,000 ml @ 75 mls/hr [id number] IVLG 12/09/17 16:45 01/08/18 16:44 12/12/17 17:39 Allergies: Coded Allergies: No Known Allergies (Unverified , 12/09/17) Subjective no CP or SOB afebrile face lesions less wheeping 12 pt ROS neg except above positives Objective Last Vital Signs Date Time Temp Pulse Resp B/P (MAP) Pulse Ox O2 Delivery O2 Flow Rate FiO2 12/12/17 20:00 98.0 95 20 100/77 99 12/09/17 16:19 Room Air Laboratory Tests Test 12/12/17 11:20 12/12/17 12:50 White Blood Count 4.8 K/UL (4.8-10.8) Red Blood Count 4.55 M/UL (4.70-6.10) L Hemoglobin 13.5 G/DL (14.2-18.0) L Hematocrit 41.4 % (42.0-52.0) L Mean Corpuscular Volume 91 FL (80-99) Mean Corpuscular Hemoglobin 29.6 PG (27.0-31.0) Mean Corpuscular Hemoglobin Concent 32.6 G/DL (32.0-36.0) Red Cell Distribution Width 13.3 % (11.6-14.8) Platelet Count 207 K/UL (150-450) Mean Platelet Volume 9.5 FL (6.5-10.1) Neutrophils (%) (Auto) 56.6 % (45.0-75.0) Lymphocytes (%) (Auto) 29.4 % (20.0-45.0) Monocytes (%) (Auto) 8.6 % (1.0-10.0) Eosinophils (%) (Auto) 4.3 % (0.0-3.0) H Basophils (%) (Auto) 1.1 % (0.0-2.0) Sodium Level 144 MMOL/L (136-145) Potassium Level 4.1 MMOL/L (3.5-5.1) Chloride Level 111 MMOL/L (98-107) H Carbon Dioxide Level 24 MMOL/L (21-32) Anion Gap 9 mmol/L (5-15) Blood Urea Nitrogen 15 mg/dL (7-18) Creatinine 1.2 MG/DL (0.55-1.30) Estimat Glomerular Filtration Rate mL/min (>60) Glucose Level 109 MG/DL (74-106) H Calcium Level 8.8 MG/DL (8.5-10.1) Vancomycin Level Trough 10.2 ug/mL (5.0-12.0) Microbiology Date/Time Source Procedure Growth Status 12/10/17 10:00 Wound Gram Stain - Final Complete 12/10/17 10:00 Wound Culture - Final Staphylococcus Aureus Complete Intake and Output 12/11/17 12/12/17 19:00 07:00 Intake Total 810 ml 75 ml Output Total 650 ml Balance 160 ml 75 ml Intake Oral 360 ml IV Total 450 ml 75 ml Output Urine Total 650 ml # Voids 1 Objective GENERAL: No acute distress. The patient is awake, alert, and oriented x3. HEENT: Normocephalic and atraumatic. NECK: Supple. No JVD. LUNGS: Clear to auscultation bilaterally. CARDIOVASCULAR: Regular rate but irregular rhythm. ABDOMEN: Soft, nontender, and nondistended. EXTREMITIES: No clubbing, cyanosis, or edema. NEUROLOGIC: The patient able to move all extremities and is awake. Assessment/Plan Assessment/Plan ASSESSMENT: 1. Severe Sepsis w/ MSSA Bacteremia 2/2 Cellulitis 2. Near syncope. 3. History of falls. 4. Atrial fibrillation-rate controlled. 5. Hypothyroidism. 6. diffuse infected skin lesions w/ MSSA 7. Major depressive disorder. 8. Acute kidney injury possibly secondary to dehydration - resolved PLANT: 1. telemetry. 2. Renal consult with Dr. Caleb Merchant. 3. TTE - no vegetations 4. Cardiac consult for atrial fibrillation with Dr. Pennington. 5. ID recs appreciated 6. IVF 7. Continue Eliquis 5 mg p.o. b.i.d. 8. Physical therapy evaluation. 9. abx - ampicillin 10. repeat BCX WILIAN MARSHALL M.D. Dec 12, 2017 23:39
[2017-12-13] VITALS: BP 118/77
[2017-12-13 04:00] VITALS: BP 118/60
[2017-12-13] MEDS: ceFAZolin sod 1 GM in NS 55 ML IVPB SCH ×3 (06:28→22:08)
[2017-12-13 08:00] VITALS: BP 115/65
[2017-12-13] MEDS: Citalopram Hydrobromide 10mg Tab ORAL SCH (10:18)
[2017-12-13] MEDS: Eliquis 2.5mg tablet ORAL SCH ×2 (10:18→17:46)
[2017-12-13] MEDS ORDERED: Tubing IV Secondary IV ONE (11:21)
[2017-12-13 12:00] VITALS: BP 120/68
--- NOTE | 2017-12-13 13:11 | Internal Med Progress Note ---
Subjective Physician Name Wilian Marshall Attending Physician Wilian Marshall M.D. Current Medications Medications (Trade) Dose Ordered Sig/Magali Route PRN Reason Start Time Stop Time Status Last Admin Dose Admin Acetaminophen (Tylenol) 650 mg Q4H PRN ORAL Mild Pain (Pain Scale 1-3) 12/09/17 15:45 01/08/18 15:44 Apixaban (Eliquis) 5 mg BID ORAL 12/10/17 09:00 01/09/18 08:59 12/13/17 10:18 Atorvastatin Calcium (Lipitor) 40 mg BEDTIME ORAL 12/09/17 21:00 01/08/18 20:59 12/12/17 21:22 Cefazolin Sodium 1 gm/Sodium Chloride 55 ml @ 110 mls/hr Q8HR IVPB 12/12/17 22:00 12/19/17 21:59 12/13/17 06:28 Citalopram Hydrobromide (celeXA) 10 mg DAILY ORAL 12/09/17 16:00 01/08/18 15:59 12/13/17 10:18 Dextrose (Dextrose 50%) STAT PRN IV Hypoglycemia 12/09/17 15:45 01/08/18 15:44 Folic Acid (Folate) 1 mg DAILY ORAL 12/09/17 16:00 01/08/18 15:59 12/13/17 10:18 Magnesium Hydroxide (Mom) 30 ml HSPRN PRN ORAL Constipation 12/09/17 15:45 01/08/18 15:44 Mirtazapine (Remeron) 15 mg BEDTIME ORAL 12/09/17 21:00 01/08/18 20:59 12/12/17 21:22 Sodium Chloride 1,000 ml @ 75 mls/hr [id number] IVLG 12/09/17 16:45 01/08/18 16:44 12/13/17 07:18 Allergies: Coded Allergies: No Known Allergies (Unverified , 12/09/17) Subjective no CP or SOB afebrile face lesions less wheeping 12 pt ROS neg except above positives Objective Last Vital Signs Date Time Temp Pulse Resp B/P (MAP) Pulse Ox O2 Delivery O2 Flow Rate FiO2 12/13/17 08:00 97.9 81 18 115/65 98 12/09/17 16:19 Room Air Intake and Output 12/12/17 12/13/17 19:00 07:00 Intake Total 1061 ml 1271 ml Output Total 300 ml 1600 ml Balance 761 ml -329 ml Intake Oral 236 ml 236 ml IV Total 825 ml 1035 ml Output Urine Total 300 ml 1600 ml # Voids 3 5 # Bowel Movements 1 Objective GENERAL: No acute distress. The patient is awake, alert, and oriented x3. HEENT: Normocephalic and atraumatic. NECK: Supple. No JVD. LUNGS: Clear to auscultation bilaterally. CARDIOVASCULAR: Regular rate but irregular rhythm. ABDOMEN: Soft, nontender, and nondistended. EXTREMITIES: No clubbing, cyanosis, or edema. NEUROLOGIC: The patient able to move all extremities and is awake. Assessment/Plan Assessment/Plan ASSESSMENT: 1. Severe Sepsis w/ MSSA Bacteremia 2/2 Cellulitis 2. Near syncope. 3. History of falls. 4. Atrial fibrillation-rate controlled. 5. Hypothyroidism. 6. diffuse infected skin lesions w/ MSSA 7. Major depressive disorder. 8. Acute kidney injury possibly secondary to dehydration - resolved PLANT: 1. telemetry. 2. Renal consult with Dr. Caleb Merchant. 3. TTE - no vegetations 4. Cardiac consult for atrial fibrillation with Dr. Pennington. 5. ID recs appreciated 6. IVF 7. Continue Eliquis 5 mg p.o. b.i.d. 8. Physical therapy evaluation. 9. abx - ampicillin ; bacitracin/polymixin apply to face BID 10. repeat BCX WILIAN MARSHALL M.D. Dec 13, 2017 13:11
--- NOTE | 2017-12-13 14:02 | Infectious Diseases Prog Note ---
Assessment/Plan Assessment/Plan A: Sepsis with MSSA Cellulitis of face Eczema/ dermatitis Atrial fibrillation P; continue Ancef Subjective ROS Limited/Unobtainable: Yes Constitutional: Reports: no symptoms Respiratory: Reports: no symptoms Gastrointestinal/Abdominal: Reports: no symptoms Genitourinary: Reports: no symptoms Skin: Reports: ulcer, other - itching Allergies: Coded Allergies: No Known Allergies (Unverified , 12/09/17) Objective Vital Signs Last 24 Hour Vital Signs Date Time Temp Pulse Resp B/P (MAP) Pulse Ox O2 Delivery O2 Flow Rate FiO2 12/13/17 12:00 90 12/13/17 08:00 97.9 81 18 115/65 98 12/13/17 08:00 73 12/13/17 05:50 99 93 99 12/13/17 04:00 98.0 78 20 118/60 100 12/13/17 04:00 77 12/13/17 00:00 98.0 79 20 118/77 99 12/12/17 23:53 79 12/12/17 20:06 83 12/12/17 20:00 98.0 95 20 100/77 99 12/12/17 16:00 98.0 89 20 122/70 97 12/12/17 16:00 80 Height (Feet): 6 Weight (Pounds): 200 General Appearance: no acute distress HEENT: other - extensive facial ulcers Respiratory/Chest: normal breath sounds Cardiovascular: normal rate Abdomen: soft, non tender Extremities: no edema Skin: rash, other - emiliana, neck, upper thighs Neurologic/Psychiatric: alert, responsive Current Medications Medications (Trade) Dose Ordered Sig/Magali Route PRN Reason Start Time Stop Time Status Last Admin Dose Admin Acetaminophen (Tylenol) 650 mg Q4H PRN ORAL Mild Pain (Pain Scale 1-3) 12/09/17 15:45 01/08/18 15:44 Apixaban (Eliquis) 5 mg BID ORAL 12/10/17 09:00 01/09/18 08:59 12/13/17 10:18 Atorvastatin Calcium (Lipitor) 40 mg BEDTIME ORAL 12/09/17 21:00 01/08/18 20:59 12/12/17 21:22 Bacitracin/ Polymyxin B Sulfate (Polysporin Oint) 1 applic BID TOPIC 12/13/17 15:00 01/12/18 14:59 Cefazolin Sodium 1 gm/Sodium Chloride 55 ml @ 110 mls/hr Q8HR IVPB 12/12/17 22:00 12/19/17 21:59 12/13/17 06:28 Citalopram Hydrobromide (celeXA) 10 mg DAILY ORAL 12/09/17 16:00 01/08/18 15:59 12/13/17 10:18 Dextrose (Dextrose 50%) STAT PRN IV Hypoglycemia 12/09/17 15:45 01/08/18 15:44 Folic Acid (Folate) 1 mg DAILY ORAL 12/09/17 16:00 01/08/18 15:59 12/13/17 10:18 Magnesium Hydroxide (Mom) 30 ml HSPRN PRN ORAL Constipation 12/09/17 15:45 01/08/18 15:44 Mirtazapine (Remeron) 15 mg BEDTIME ORAL 12/09/17 21:00 01/08/18 20:59 12/12/17 21:22 Sodium Chloride 1,000 ml @ 75 mls/hr [id number] IVLG 12/09/17 16:45 01/08/18 16:44 12/13/17 07:18 BETHANIE EVANS Dec 13, 2017 14:02
--- NOTE | 2017-12-13 14:21 | Cardiology Progress Note ---
Assessment/Plan Assessment/Plan sig skin lesions (chronic) orthostatic hypotesnion bacteremia nsvt normal systolic function afib on anticoagulation syncope iv abx echo noted hr is controlled keep on anticoagulation awiat id input tele afib no vt noted orthostic vitals postive today will admsited smoe ivf Subjective Cardiovascular: Denies: chest pain, lightheadedness Respiratory: Denies: shortness of breath Gastrointestinal/Abdominal: Denies: abdominal pain Genitourinary: Denies: burning Objective Last 24 Hour Vital Signs Date Time Temp Pulse Resp B/P (MAP) Pulse Ox O2 Delivery O2 Flow Rate FiO2 12/13/17 12:00 90 12/13/17 09:00 98 90 63 12/13/17 08:00 97.9 81 18 115/65 98 12/13/17 08:00 73 12/13/17 05:50 99 93 99 12/13/17 04:00 98.0 78 20 118/60 100 12/13/17 04:00 77 12/13/17 00:00 98.0 79 20 118/77 99 12/12/17 23:53 79 12/12/17 20:06 83 12/12/17 20:00 98.0 95 20 100/77 99 12/12/17 16:00 98.0 89 20 122/70 97 12/12/17 16:00 80 General Appearance: no apparent distress, alert Neck: supple Cardiovascular: normal rate, regular rhythm Respiratory/Chest: lungs clear, normal breath sounds Abdomen: normal bowel sounds, non tender, soft Extremities: trace edema Intake and Output 12/12/17 12/13/17 19:00 07:00 Intake Total 1061 ml 1271 ml Output Total 300 ml 1600 ml Balance 761 ml -329 ml Intake Oral 236 ml 236 ml IV Total 825 ml 1035 ml Output Urine Total 300 ml 1600 ml # Voids 3 5 # Bowel Movements 1 THU MCCANN Dec 13, 2017 14:21
[2017-12-13] MEDS: Polysporin Oint 30gm TOPIC SCH ×2 (15:30→17:47)
--- NOTE | 2017-12-13 15:56 | Nephrology Progress Note ---
Assessment/Plan Problem List: (1) Syncope and collapse (2) Sepsis (3) Staphylococcus aureus bacteremia (4) ARF (acute renal failure) Assessment ARF better Plan abxs follow labs Discussed with Dr Broderick Subjective Subjective In NAD Objective Objective Last 24 Hour Vital Signs Date Time Temp Pulse Resp B/P (MAP) Pulse Ox O2 Delivery O2 Flow Rate FiO2 12/13/17 12:00 98.1 86 20 120/68 98 12/13/17 12:00 90 12/13/17 09:00 98 90 63 12/13/17 08:00 97.9 81 18 115/65 98 12/13/17 08:00 73 12/13/17 05:50 99 93 99 12/13/17 04:00 98.0 78 20 118/60 100 12/13/17 04:00 77 12/13/17 00:00 98.0 79 20 118/77 99 12/12/17 23:53 79 12/12/17 20:06 83 12/12/17 20:00 98.0 95 20 100/77 99 12/12/17 16:00 98.0 89 20 122/70 97 12/12/17 16:00 80 Intake and Output 12/12/17 12/13/17 19:00 07:00 Intake Total 1061 ml 1271 ml Output Total 300 ml 1600 ml Balance 761 ml -329 ml Intake Oral 236 ml 236 ml IV Total 825 ml 1035 ml Output Urine Total 300 ml 1600 ml # Voids 3 5 # Bowel Movements 1 Height (Feet): 6 Weight (Pounds): 200 Cardiovascular: normal rate Respiratory/Chest: lungs clear Extremities: moderate edema SEAN EVANS Dec 13, 2017 15:55
[2017-12-13 16:00] VITALS: BP 124/88
[2017-12-13 20:00] VITALS: BP 108/64
[2017-12-13] MEDS: Atorvastatin 20mg tab ORAL SCH (21:16)
[2017-12-14] VITALS: BP 104/64
[2017-12-14 04:00] VITALS: BP 118/75
[2017-12-14] MEDS: ceFAZolin sod 1 GM in NS 55 ML IVPB SCH ×3 (05:50→22:27)
[2017-12-14 08:00] VITALS: BP 124/67
[2017-12-14] MEDS: Eliquis 2.5mg tablet ORAL SCH ×2 (08:17→17:13)
[2017-12-14] MEDS: Citalopram Hydrobromide 10mg Tab ORAL SCH (08:17)
[2017-12-14] MEDS: Polysporin Oint 30gm TOPIC SCH ×2 (09:38→17:13)
--- NOTE | 2017-12-14 11:43 | General Progress Note ---
Assessment/Plan Problem List: (1) Syncope and collapse ICD Codes: R55 - Syncope and collapse SNOMED: 232684979 (2) Sepsis ICD Codes: A41.9 - Sepsis, unspecified organism SNOMED: 18286548 (3) Staphylococcus aureus bacteremia ICD Codes: R78.81 - Bacteremia SNOMED: 557096467 (4) ARF (acute renal failure) ICD Codes: N17.9 - Acute kidney failure, unspecified SNOMED: 95774678 Status Narrative ARF better Assessment/Plan IV vanco follow BMP Subjective Allergies: Coded Allergies: No Known Allergies (Unverified , 12/09/17) Subjective In NAD Objective Last 24 Hour Vital Signs Date Time Temp Pulse Resp B/P (MAP) Pulse Ox O2 Delivery O2 Flow Rate FiO2 12/14/17 08:00 97.2 107 18 124/67 99 Room Air 12/14/17 08:00 71 12/14/17 04:00 98.0 81 20 118/75 98 Room Air 12/14/17 04:00 85 12/14/17 00:00 96.7 81 20 104/64 98 Room Air 12/14/17 00:00 87 12/13/17 21:10 97 12/13/17 21:05 93 12/13/17 21:00 84 12/13/17 20:00 94 12/13/17 20:00 97.9 84 20 108/64 99 Room Air 12/13/17 16:00 97.9 110 20 124/88 98 12/13/17 16:00 103 12/13/17 12:00 98.1 86 20 120/68 98 12/13/17 12:00 90 Intake and Output 12/13/17 12/14/17 19:00 07:00 Intake Total 420 ml 1452 ml Output Total 700 ml 360 ml Balance -280 ml 1092 ml Intake Oral 240 ml IV Total 180 ml 1452 ml Output Urine Total 700 ml 360 ml # Voids 3 Height (Feet): 6 Weight (Pounds): 200 Cardiovascular: normal rate Respiratory/Chest: lungs clear Edema: 1+ Generalized SEAN EVANS Dec 14, 2017 11:43
[2017-12-14 12:00] VITALS: BP 111/68
--- NOTE | 2017-12-14 12:15 | Infectious Diseases Prog Note ---
Assessment/Plan Assessment/Plan A: Sepsis with MSSA Cellulitis of face Eczema/ dermatitis Atrial fibrillation P; continue Ancef Subjective ROS Limited/Unobtainable: Yes Constitutional: Reports: no symptoms Respiratory: Reports: no symptoms Gastrointestinal/Abdominal: Reports: no symptoms Genitourinary: Reports: no symptoms Musculoskeletal: Reports: no symptoms Allergies: Coded Allergies: No Known Allergies (Unverified , 12/09/17) Objective Vital Signs Last 24 Hour Vital Signs Date Time Temp Pulse Resp B/P (MAP) Pulse Ox O2 Delivery O2 Flow Rate FiO2 12/14/17 12:00 97.0 71 18 111/68 99 Room Air 12/14/17 08:00 97.2 107 18 124/67 99 Room Air 12/14/17 08:00 71 12/14/17 04:00 98.0 81 20 118/75 98 Room Air 12/14/17 04:00 85 12/14/17 00:00 96.7 81 20 104/64 98 Room Air 12/14/17 00:00 87 12/13/17 21:10 97 12/13/17 21:05 93 12/13/17 21:00 84 12/13/17 20:00 94 12/13/17 20:00 97.9 84 20 108/64 99 Room Air 12/13/17 16:00 97.9 110 20 124/88 98 12/13/17 16:00 103 Height (Feet): 6 Weight (Pounds): 200 General Appearance: no acute distress HEENT: other - extensive facial ulcers Respiratory/Chest: lungs clear Cardiovascular: normal rate Abdomen: soft, non tender Extremities: no edema Skin: rash, other - diffuse nodules Neurologic/Psychiatric: alert, responsive Microbiology Date/Time Source Procedure Growth Status 12/12/17 16:20 Blood Blood Culture - Preliminary NO GROWTH AFTER 24 HOURS Resulted 12/12/17 16:10 Blood Blood Culture - Preliminary NO GROWTH AFTER 24 HOURS Resulted Current Medications Medications (Trade) Dose Ordered Sig/Magali Route PRN Reason Start Time Stop Time Status Last Admin Dose Admin Acetaminophen (Tylenol) 650 mg Q4H PRN ORAL Mild Pain (Pain Scale 1-3) 12/09/17 15:45 01/08/18 15:44 Apixaban (Eliquis) 5 mg BID ORAL 12/10/17 09:00 01/09/18 08:59 12/14/17 08:17 Atorvastatin Calcium (Lipitor) 40 mg BEDTIME ORAL 12/09/17 21:00 01/08/18 20:59 12/13/17 21:16 Bacitracin/ Polymyxin B Sulfate (Polysporin Oint) 1 applic BID TOPIC 12/13/17 15:00 01/12/18 14:59 12/14/17 09:38 Cefazolin Sodium 1 gm/Sodium Chloride 55 ml @ 110 mls/hr Q8HR IVPB 12/12/17 22:00 12/19/17 21:59 12/14/17 05:50 Citalopram Hydrobromide (celeXA) 10 mg DAILY ORAL 12/09/17 16:00 01/08/18 15:59 12/14/17 08:17 Dextrose (Dextrose 50%) STAT PRN IV Hypoglycemia 12/09/17 15:45 01/08/18 15:44 Folic Acid (Folate) 1 mg DAILY ORAL 12/09/17 16:00 01/08/18 15:59 12/14/17 08:17 Magnesium Hydroxide (Mom) 30 ml HSPRN PRN ORAL Constipation 12/09/17 15:45 01/08/18 15:44 Mirtazapine (Remeron) 15 mg BEDTIME ORAL 12/09/17 21:00 01/08/18 20:59 12/13/17 21:15 Sodium Chloride 1,000 ml @ 125 mls/hr Q8H IVLG 12/13/17 16:45 01/12/18 16:44 12/14/17 08:17 BETHANIE EVANS Dec 14, 2017 12:15
--- NOTE | 2017-12-14 15:16 | Internal Med Progress Note ---
Subjective Physician Name Wilian Marshall Attending Physician Wilian Marshall M.D. Current Medications Medications (Trade) Dose Ordered Sig/Magali Route PRN Reason Start Time Stop Time Status Last Admin Dose Admin Acetaminophen (Tylenol) 650 mg Q4H PRN ORAL Mild Pain (Pain Scale 1-3) 12/09/17 15:45 01/08/18 15:44 Apixaban (Eliquis) 5 mg BID ORAL 12/10/17 09:00 01/09/18 08:59 12/14/17 08:17 Atorvastatin Calcium (Lipitor) 40 mg BEDTIME ORAL 12/09/17 21:00 01/08/18 20:59 12/13/17 21:16 Bacitracin/ Polymyxin B Sulfate (Polysporin Oint) 1 applic BID TOPIC 12/13/17 15:00 01/12/18 14:59 12/14/17 09:38 Cefazolin Sodium 1 gm/Sodium Chloride 55 ml @ 110 mls/hr Q8HR IVPB 12/12/17 22:00 12/19/17 21:59 12/14/17 13:42 Citalopram Hydrobromide (celeXA) 10 mg DAILY ORAL 12/09/17 16:00 01/08/18 15:59 12/14/17 08:17 Dextrose (Dextrose 50%) STAT PRN IV Hypoglycemia 12/09/17 15:45 01/08/18 15:44 Folic Acid (Folate) 1 mg DAILY ORAL 12/09/17 16:00 01/08/18 15:59 12/14/17 08:17 Magnesium Hydroxide (Mom) 30 ml HSPRN PRN ORAL Constipation 12/09/17 15:45 01/08/18 15:44 Mirtazapine (Remeron) 15 mg BEDTIME ORAL 12/09/17 21:00 01/08/18 20:59 12/13/17 21:15 Sodium Chloride 1,000 ml @ 125 mls/hr Q8H IVLG 12/13/17 16:45 01/12/18 16:44 12/14/17 08:17 Allergies: Coded Allergies: No Known Allergies (Unverified , 12/09/17) Subjective no CP or SOB afebrile c/o R hip pain less facial drainage 12 pt ROS neg except above positives Objective Last Vital Signs Date Time Temp Pulse Resp B/P (MAP) Pulse Ox O2 Delivery O2 Flow Rate FiO2 12/14/17 12:00 97.0 71 18 111/68 99 Room Air Microbiology Date/Time Source Procedure Growth Status 12/12/17 16:20 Blood Blood Culture - Preliminary NO GROWTH AFTER 24 HOURS Resulted 12/12/17 16:10 Blood Blood Culture - Preliminary NO GROWTH AFTER 24 HOURS Resulted Intake and Output 12/13/17 12/14/17 19:00 07:00 Intake Total 420 ml 1452 ml Output Total 700 ml 360 ml Balance -280 ml 1092 ml Intake Oral 240 ml IV Total 180 ml 1452 ml Output Urine Total 700 ml 360 ml # Voids 3 Objective GENERAL: No acute distress. The patient is awake, alert, and oriented x3. HEENT: Normocephalic and atraumatic. NECK: Supple. No JVD. LUNGS: Clear to auscultation bilaterally. CARDIOVASCULAR: Regular rate but irregular rhythm. ABDOMEN: Soft, nontender, and nondistended. EXTREMITIES: No clubbing, cyanosis, or edema. NEUROLOGIC: The patient able to move all extremities and is awake. Assessment/Plan Assessment/Plan ASSESSMENT: 1. Severe Sepsis w/ MSSA Bacteremia 2/2 Cellulitis 2. Near syncope. 3. History of falls. 4. Atrial fibrillation-rate controlled. 5. Hypothyroidism. 6. diffuse infected skin lesions w/ MSSA 7. Major depressive disorder. 8. Acute kidney injury possibly secondary to dehydration - resolved PLANT: 1. telemetry. 2. Renal consult with Dr. Caleb Merchant. 3. TTE - no vegetations 4. Cardiac consult for atrial fibrillation with Dr. Pennington. 5. ID recs appreciated 6. IVF 7. Continue Eliquis 5 mg p.o. b.i.d. 8. Physical therapy evaluation. 9. abx - ampicillin ; bacitracin/polymixin apply to face BID 10. repeat BCX --> negative d/c planning to SNF with Ampicillin to complete 2 weeks of Abx; f/u with dermatology as outpatient WILIAN MARSHALL M.D. Dec 14, 2017 15:16
[2017-12-14 16:00] VITALS: BP 124/87
--- NOTE | 2017-12-14 19:19 | Cardiology Progress Note ---
Assessment/Plan Assessment/Plan sig skin lesions (chronic) orthostatic hypotesnion bacteremia nsvt normal systolic function afib on anticoagulation syncope iv abx echo noted hr is controlled keep on anticoagulation tele afib no vt noted orthostic vitals pneg to day surveillance cx neg Subjective Cardiovascular: Denies: chest pain, lightheadedness Respiratory: Denies: shortness of breath Objective Last 24 Hour Vital Signs Date Time Temp Pulse Resp B/P (MAP) Pulse Ox O2 Delivery O2 Flow Rate FiO2 12/14/17 16:00 96.9 84 20 124/87 100 Room Air 12/14/17 12:00 97.0 71 18 111/68 99 Room Air 12/14/17 12:00 77 12/14/17 09:10 97 12/14/17 09:05 96 12/14/17 09:00 79 12/14/17 08:00 97.2 107 18 124/67 99 Room Air 12/14/17 08:00 71 12/14/17 04:00 98.0 81 20 118/75 98 Room Air 12/14/17 04:00 85 12/14/17 00:00 96.7 81 20 104/64 98 Room Air 12/14/17 00:00 87 12/13/17 21:10 97 12/13/17 21:05 93 12/13/17 21:00 84 12/13/17 20:00 94 12/13/17 20:00 97.9 84 20 108/64 99 Room Air General Appearance: no apparent distress, alert Intake and Output 12/13/17 12/14/17 19:00 07:00 Intake Total 420 ml 1452 ml Output Total 700 ml 360 ml Balance -280 ml 1092 ml Intake Oral 240 ml IV Total 180 ml 1452 ml Output Urine Total 700 ml 360 ml # Voids 3 Microbiology Date/Time Source Procedure Growth Status 12/12/17 16:20 Blood Blood Culture - Preliminary NO GROWTH AFTER 24 HOURS Resulted 12/12/17 16:10 Blood Blood Culture - Preliminary NO GROWTH AFTER 24 HOURS Resulted THU MCCANN Dec 14, 2017 19:19
[2017-12-14 20:00] VITALS: BP 110/70
[2017-12-14] MEDS ORDERED: Milk of Magnesia 30ml Ud ORAL PRN (20:26)
[2017-12-14] MEDS ORDERED: Atorvastatin 20mg tab ORAL SCH (21:00)
[2017-12-15 00:20] VITALS: BP 128/74
[2017-12-15 04:00] VITALS: BP 106/69
[2017-12-15] MEDS: ceFAZolin sod 1 GM in NS 55 ML IVPB SCH ×2 (05:46→14:04)
[2017-12-15 08:00] VITALS: BP 117/70
[2017-12-15] MEDS ORDERED: Citalopram Hydrobromide 10mg Tab ORAL SCH (09:00)
[2017-12-15] MEDS ORDERED: Polysporin Oint 30gm TOPIC SCH (09:00)
[2017-12-15] MEDS ORDERED: Eliquis 2.5mg tablet ORAL SCH (09:00)
--- NOTE | 2017-12-15 11:34 | Nephrology Progress Note ---
Assessment/Plan Problem List: (1) Syncope and collapse (2) Sepsis (3) Staphylococcus aureus bacteremia (4) ARF (acute renal failure) Assessment ARF better Plan abxs follow labs Subjective Subjective In NAD Objective Objective Last 24 Hour Vital Signs Date Time Temp Pulse Resp B/P (MAP) Pulse Ox O2 Delivery O2 Flow Rate FiO2 12/15/17 08:00 97.5 100 20 117/70 100 12/15/17 04:00 95 Room Air 12/15/17 04:00 97.6 83 20 106/69 95 Room Air 12/15/17 00:20 98 Room Air 12/15/17 00:20 96.3 94 16 128/74 98 Room Air 12/14/17 20:00 96.4 80 18 110/70 99 Room Air 12/14/17 20:00 99 Room Air 12/14/17 16:00 96.9 84 20 124/87 100 Room Air 12/14/17 12:00 97.0 71 18 111/68 99 Room Air 12/14/17 12:00 77 Intake and Output 12/14/17 12/15/17 19:00 07:00 Intake Total 1850 ml 500 ml Output Total 600 ml Balance 1250 ml 500 ml Intake Oral 360 ml IV Total 1490 ml 500 ml Output Urine Total 600 ml # Voids 1 Height (Feet): 6 Weight (Pounds): 200 Cardiovascular: normal rate Respiratory/Chest: lungs clear Extremities: moderate edema SEAN EVANS Dec 15, 2017 11:34
[2017-12-15 12:00] VITALS: BP 112/67
--- NOTE | 2017-12-15 12:54 | Discharge Summary ---
Discharge Summary Hospital Course Date of Admission Dec 09, 2017 at 13:14 Date of Discharge Admitting Diagnosis sepsis , hypotensive HPI Clyde Villegas is a 82 year old male who was admitted on Dec 09, 2017 at 13:14 for Sepsis/Hypotensive Discharge Discharge Disposition Patient was discharged to Discharge Diagnoses: CARMEN MARSHALL M.D. Dec 15, 2017 12:54
[2017-12-15] MEDS ORDERED: [UNRECOGNIZED DRUG - OTHER] TP ×2 (13:14→14:42)
--- NOTE | 2017-12-15 13:51 | Infectious Diseases Prog Note ---
Assessment/Plan Assessment/Plan A: Sepsis with MSSA Cellulitis of face Eczema/ dermatitis Atrial fibrillation P; continue Ancef agree with discharge plan case was D/W PMD Subjective ROS Limited/Unobtainable: Yes Allergies: Coded Allergies: No Known Allergies (Unverified , 12/09/17) Objective Vital Signs Last 24 Hour Vital Signs Date Time Temp Pulse Resp B/P (MAP) Pulse Ox O2 Delivery O2 Flow Rate FiO2 12/15/17 08:00 97.5 100 20 117/70 100 12/15/17 04:00 95 Room Air 12/15/17 04:00 97.6 83 20 106/69 95 Room Air 12/15/17 00:20 98 Room Air 12/15/17 00:20 96.3 94 16 128/74 98 Room Air 12/14/17 20:00 96.4 80 18 110/70 99 Room Air 12/14/17 20:00 99 Room Air 12/14/17 16:00 96.9 84 20 124/87 100 Room Air Height (Feet): 6 Weight (Pounds): 200 General Appearance: no acute distress HEENT: mucous membranes moist, other - extensive facial skin lesion/ulcer Respiratory/Chest: lungs clear Cardiovascular: normal rate Abdomen: soft, non tender Extremities: no edema Skin: other - nodules Neurologic/Psychiatric: other - sleeping Microbiology Date/Time Source Procedure Growth Status 12/12/17 16:20 Blood Blood Culture - Preliminary NO GROWTH AFTER 48 HOURS Resulted 12/12/17 16:10 Blood Blood Culture - Preliminary NO GROWTH AFTER 48 HOURS Resulted Current Medications Medications (Trade) Dose Ordered Sig/Magali Route PRN Reason Start Time Stop Time Status Last Admin Dose Admin Acetaminophen (Tylenol) 650 mg Q4H PRN ORAL Mild Pain (Pain Scale 1-3) 12/14/17 20:25 01/08/18 20:24 Apixaban (Eliquis) 5 mg BID ORAL 12/15/17 09:00 01/09/18 08:59 12/15/17 09:24 Atorvastatin Calcium (Lipitor) 40 mg BEDTIME ORAL 12/14/17 21:00 01/08/18 20:59 12/14/17 21:26 Bacitracin/ Polymyxin B Sulfate (Polysporin Oint) 1 applic BID TOPIC 12/15/17 09:00 01/12/18 14:59 12/15/17 09:24 Cefazolin Sodium 1 gm/Sodium Chloride 55 ml @ 110 mls/hr Q8HR IVPB 12/14/17 22:00 12/19/17 21:59 12/15/17 05:46 Citalopram Hydrobromide (celeXA) 10 mg DAILY ORAL 12/15/17 09:00 01/08/18 15:59 12/15/17 09:24 Dextrose (Dextrose 50%) STAT PRN IV Hypoglycemia 12/14/17 20:26 01/13/18 20:25 Folic Acid (Folate) 1 mg DAILY ORAL 12/15/17 09:00 01/08/18 15:59 12/15/17 09:23 Magnesium Hydroxide (Mom) 30 ml HSPRN PRN ORAL Constipation 12/14/17 20:26 01/13/18 20:25 Mirtazapine (Remeron) 15 mg BEDTIME ORAL 12/14/17 21:00 01/08/18 20:59 12/14/17 21:26 Sodium Chloride 1,000 ml @ 125 mls/hr Q8H IVLG 12/14/17 20:15 01/12/18 16:44 12/15/17 01:19 BETHANIE EVANS Dec 15, 2017 13:51
--- NOTE | 2017-12-16 13:09 | Discharge Summary ---
Discharge Summary Hospital Course Date of Admission Dec 09, 2017 at 13:14 Date of Discharge Dec 15, 2017 at 15:48 Admitting Diagnosis sepsis , hypotensive HPI Clyde Villegas is a 82 year old male who was admitted on Dec 09, 2017 at 13:14 for Sepsis/Hypotensive Hospital Course [id number] Discharge Discharge Disposition Patient was discharged to snf Discharge Diagnoses: Sanam Cabrera NP Dec 16, 2017 13:09
--- NOTE | 2017-12-16 23:30 | Discharge Summary 2 SIG ---
DATE OF ADMISSION: 12/09/2017 DATE OF DISCHARGE: 12/15/2017 CONSULTANTS: 1. Jimbo Merchant M.D. 2. Caleb Merchant M.D. 3. José Miguel Pennington M.D. BRIEF HOSPITAL COURSE: The patient is an 82-year-old male, who is followed at the [facility] with past medical history significant for atrial fibrillation, on Eliquis, gastroesophageal reflux disease, major depressive disorder, and dermatitis on face and arms as well as torso was brought in by ambulance from assisted living due to hypotension. The patient had an episode of near syncope and dizziness. He is a poor historian. He apparently was walking and ended up on the ground. He was awakened by paramedics. He was recently seen by patent searcher for dermatitis. On evaluation at ED, he was hypotensive. Blood work did not show any leukocytosis. Lactic acid was 3.1. Creatinine was 1.8. He had a chest x-ray done that showed no acute disease. No consolidation, effusion, or pneumothorax. EKG was in normal sinus rhythm. He was admitted for hypotension and near syncope. He was started on intravenous NS. EKG was in atrial fibrillation. He had an echocardiogram done that showed ejection fraction of 60% to 65%. There was no evidence of pericardial effusion. No aortic regurgitation. Heart rate was controlled. He was continued on anticoagulation. On the monitor, initially there was nonsustained SVT, however, there was no recurrence. Orthostatic vitals were positive. He was continued on IVF. He was started on Ancef for cellulitis. Blood culture was showing growth of Staphylococcus aureus. Wound culture with Staphylococcus aureus. He was followed by Infectious Disease specialist. Antibiotic was changed from vancomycin to Ancef. Echocardiogram did not show any vegetations. Surveillance blood culture was negative. Creatinine levels improved. There was less drainage from the facial skin lesions. Bacitracin/polymyxin was applied to the face b.i.d. Acute kidney injury resolved with IV hydration. He was given physical therapy and was eventually discharged to SNF with ampicillin to complete two weeks of antibiotic and for a Dermatology follow up. FINAL DIAGNOSES: 1. Severe sepsis with methicillin-sensitive Staphylococcus bacteremia secondary to cellulitis. 2. Near syncope, positive for orthostasis. 3. Falls. 4. Atrial fibrillation with rate control. 5. Hypothyroidism. 6. Diffuse infected skin lesion with methicillin-sensitive Staphylococcus aureus. 7. Major depressive disorder. 8. Acute kidney injury possibly secondary to dehydration. DISPOSITION: The patient was discharged to [facility]. DISCHARGE MEDICATIONS: Refer to medication list. DISCHARGE INSTRUCTIONS: Continue antibiotic. Follow up with Dermatology as outpatient. Wilian Broderick MD I have been assigned to dictate discharge summary on this account and I was not involved in the patient's management. Sanam Cabrera N.P. DR: VARUN JOB#: [id number] CC: [id number]
== END 2017-12-15 15:48 | DRG 872 ==
LOC: EDBD 12:15 → EMR 13:10 → 2E 13:14 → EDBEDREQ 14:36 → 4E 12-14 20:11
DX: A41.01 Sepsis due to Methicillin susceptible Staphylococcus aureus (principal); N17.9 Acute kidney failure, unspecified; I47.2 Ventricular tachycardia; I47.1 Supraventricular tachycardia; L03.211 Cellulitis of face; I48.2 Chronic atrial fibrillation; E86.0 Dehydration; I34.0 Nonrheumatic mitral (valve) insufficiency; F32.9 Major depressive disorder, single episode, unspecified; E03.9 Hypothyroidism, unspecified; I45.10 Unspecified right bundle-branch block; L30.9 Dermatitis, unspecified; Z91.81 History of falling; K21.9 Gastro-esophageal reflux disease without esophagitis; Z79.01 Long term (current) use of anticoagulants; I95.1 Orthostatic hypotension; R65.20 Severe sepsis without septic shock
CPT/HCPCS: 36415; 71045; 76775; 80048; 80053; 80202; 81003; 82550; 82553; 82570; 83605; 83690; 83735; 83880; 84300; 84439; 84443; 84484; 85025; 87040; 87070; 87081; 87181; 87205; 93005; 93306; 99285; J8499